=== PATIENT | female | born 1965 | race Caucasian/White ===

== ENCOUNTER 2017-04-05 13:52 | Emergency (ER) | payer SELFPAY ==
[~2017-04-05] VITALS: Ht 160 cm; Wt 80.0 kg
[2017-04-05 13:53] VITALS: Ht 160 cm; Wt 80.0 kg
--- NOTE | 2017-04-05 15:27 | ERD ---
ER Documentation Chief Complaint Date/Time DATE: 04/05/17 TIME: 15:23 Chief Complaint RIGHT BIG TOE PAIN. HX OF DM HPI This is a 51-year-old female with a past medical history of diabetes on two medications (patient cannot remember the pill names) who is presenting with concerns of an ingrown toenail. She thought that maybe her nail was infected right toenail quite deeply on the medial aspect. She did this several days ago and she has had an aching and a soreness since then. She is worried of an ingrown toenail. She went to an urgent care clinic that referred her to the emergency department. There is no swelling or redness or pus to the toe. The patient has no other complaints. ROS All systems reviewed and are negative except as per history of present illness. Allergies Allergies: Coded Allergies: No Known Allergy (Unverified , 04/05/17) PMhx/Soc Medical and Surgical Hx: pt denies Surgical Hx Hx Miscellaneous Medical Probl: Yes (DM) Hx Alcohol Use: No Hx Substance Use: No Hx Tobacco Use: No FmHx Family History: diabetes Physical Exam Vitals Vital Signs Date Time Temp Pulse Resp B/P Pulse Ox O2 Delivery O2 Flow Rate FiO2 04/05/17 13:53 97.6 78 20 129/64 99 Physical Exam Const: Well-developed, well-nourished, no apparent distress Head: Atraumatic Eyes: Normal Conjunctiva ENT: Normal External Ears, Nose and Mouth. Neck: Full range of motion. ~ No meningismus. Resp: Clear to auscultation bilaterally Cardio: Regular rate and rhythm, no murmurs Abd: Soft, non tender, non distended. Normal bowel sounds Skin: No petechiae or rashes Back: No midline or flank tenderness Ext: No cyanosis, or edema, right medial ingrown great toenail without evidence of infection Neur: Awake and alert Psych: Normal Mood and Affect Results 24 hrs Current Medications Medications (Trade) Dose Ordered Sig/Dawit Route PRN Reason Start Time Stop Time Status Last Admin Dose Admin Bacitracin (Bacitracin Oint (Ud)) 1 applic ONCE ONCE TOP 04/05/17 15:30 04/05/17 15:31 DC Procedures/MDM The patient's presenting with pain to her right great toe. There is no sign of infection. There is no erythema or induration or edema or purulence or fluctuance. The patient is concerned of an ingrown toenail. The patient's ingrown toenail was excised without complication. The patient needs to follow- up with her primary care physician as well as a visual basic developer. She will call her primary care physician in 2-3 days for reevaluation of her toe. Bacitracin and a Band-Aid will be applied. The patient is ambulatory without difficulty. She may return to the emergency department for any concerns. Departure Diagnosis: Primary Impression: Pain of toe Laterality: right Qualified Code: M79.674 - Pain of toe of right foot Condition: Stable MICHELET HESTER MD Apr 05, 2017 15:27
[2017-04-05] MEDS ORDERED: BACITRACIN 0.9 GM OINT TOP ONE (15:30)
== END 2017-04-05 15:58 | disposition home or self-care (01) ==
LOC: FTE 13:52
DX: M79.674 Pain in right toe(s) (principal); E11.9 Type 2 diabetes mellitus without complications
CPT/HCPCS: 99282

== ENCOUNTER 2017-09-13 15:12 | Emergency (ER) | END 2017-09-13 17:59 | disposition home or self-care (01) ==